=== PATIENT | male | born 1975 | race Caucasian/White ===

== ENCOUNTER 2022-09-10 11:07 | Outpatient (REF) | payer MEDICAID, SELFPAY ==
--- NOTE | ~2022-09-10 | XR_ITS ---
EXAMINATION: XR CHEST CLINICAL INFORMATION: Preop COMPARISON: None TECHNIQUE: 2 views of the chest were obtained. FINDINGS: No significant abnormality is noted involving the heart, lungs, mediastinum, bony thorax or soft tissues. XR/XR chest 2V IMPRESSION: Unremarkable examination.
[2022-09-10 11:29] LABS: MANUAL DIFF FLAG NO
[2022-09-10 12:02] LABS: Basophils Absolute Auto 0.1 X10*3/uL (0.0-0.2); Basophils Percent Auto 0.5 % (0-2); Eosinophils Absolute Auto 0.1 X10*3/uL (0.0-0.4); Eosinophils Percent Auto 1.2 % (0-4); Hematocrit 47.1 % (42.0-52.0); Hemoglobin 15.7 g/dl (14.0-18.0); Imm Gran Abs Auto 0.04 X10*3/uL (0.00-0.03); Imm Gran Pct Auto 0.3 % (0.0-0.4); Lymphocytes Percent Auto 25.7 % (20-40); Mean Corpuscular HGB Conc 33.3 g/dl (31.0-36.0); Mean Corpuscular Hemoglobin 28.3 pg (27.0-33.0); Mean Corpuscular Volume 84.9 fL (80.0-98.0); Mean Platelet Volume 8.9 fL (9.4-12.4); Monocytes Absolute Auto 0.6 X10*3/uL (0.1-1.2); Monocytes Percent Auto 5.4 % (2-11); Neutrophils Absolute Auto 7.7 x10*3/uL (2.0-8.3); Neutrophils Percent Auto 66.9 % (45-73); Platelet Count 270 X10*3/uL (160-400); Red Blood Count 5.55 X10*6/uL (4.60-5.80); Red Cell Distribution Width 13.3 % (11.0-16.0); White Blood Count 11.6 X10*3/uL (4.8-10.8)
[2022-09-10 12:12] LABS: Appearance Urine Clear; Color Urine Yellow; Glucose Urine UA Negative (Negative); Leukocyte Esterase Urine Small (1+) (Negative); Nitrite Urine Negative (Negative); PH 6.5 (5.0-9.0); Specific Gravity - Urine 1.025 (1.005-1.025); UMIC TRIGGER UA YES; Urine Blood Negative (Negative); Urine Ketones Negative (Negative); Urine Protein Negative (Neg-Trace)
[2022-09-10 12:28] LABS: Bacteria Urine None Seen (None Seen); Hyaline Casts Urine 0-2 /LPF (0-2); RBC Urine 0-2 /HPF (0-2); Squamous Epithelial Cell Urine 0-2 /HPF (0-2); WBC Urine 0-5 /HPF (0-5)
[2022-09-10 13:12] LABS: Alanine Aminotransferase 24 U/L (0-40); Albumin Level 4.9 g/dL (3.5-5.0); Alkaline Phosphatase 60 U/L (39-117); Anion Gap 16 (12-20); Aspartate Amino Transferase 18 U/L (5-37); Bilirubin Total 0.4 mg/dL (0.0-1.0); Blood Urea Nitrogen 14 mg/dL (9-16); Carbon Dioxide 24 mmol/L (22-29); Chloride 100 mmol/L (96-108); Cholesterol 308 mg/dL; Estimated Glomerular Filt Rate > 60; Glucose Fasting 99 mg/dL (60-99); HDL Cholesterol 38 mg/dL; LDL Cholesterol Calculated 201 mg/dl; Potassium 4.9 mmol/L (3.3-5.1); Sodium 135 mmol/L (135-145); Total Protein 7.7 g/dL (6.5-8.0); Triglycerides 349 mg/dL
[2022-09-10 15:10] LABS: Prostate Specific Antigen Scr 2.23 ng/mL (<0.05-4.0)
== END 2022-09-10 11:08 | disposition home or self-care (01) ==
LOC: HO.LAB 11:07
PROVIDERS: PCP Internal Medicine; Visit Provider Internal Medicine
DX: Z01.818 Encounter for other preprocedural examination (principal); Z12.5 Encounter for screening for malignant neoplasm of prostate; Z72.0 Tobacco use
CPT/HCPCS: 36415; 71046; 80053; 80061; 81001; 84153; 85025

== ENCOUNTER 2022-11-04 11:51 | Day surgery (SDC) | payer MEDICAID, SELFPAY ==
[2022-11-04] VITALS (7 sets, daily range): BP systolic 107–131; BP diastolic 71–83; PULSE 81–101; RESP 15–16; TEMP 36.6–36.9; O2SAT 93–98; BMI 28.7
--- NOTE | 2022-11-04 13:45 | P.CONAN_ITS ---
HPI - Anesthesia Eval Consult details Narrative: 47 yo male patient for screening colonoscopy. Pre-op kidney donor PMFSH Active Problems Active Problems: Smoker- 1ppd Past Medical History Medical History (Updated 11/01/22 @ 07:28 by Janny Cintron RN) Anxiety Depression Elevated cholesterol Family History Family history of problems with anesthesia: No Surgical History History of Problems with Anesthesia: No Social History Social History Patient Tobacco Use Status: Current everyday Tobacco user Are you DNR?: No Advance Directives: No Advance Directives Information Provided: Yes Nutrition Risks: No Nutritional Risk Meds Allergies Allergy/AdvReac Type Severity Reaction Status Date / Time No Known Allergies Allergy Unverified 06/29/20 17:33 Active Medications: Current Medications Sodium Biphosphate/Sodium Phosphate (Sodium Phosphate,[place]-Dibasic 133 Ml Enema) 133 ml WA ONCE PRN PRN Reason: Poor Colonoscopy Prep Results Home Medications Medication Instructions Recorded Confirmed Last Taken Type atorvastatin 20 mg tablet 1 tab PO DAILY 11/01/22 11/01/22 Unknown History sertraline 100 mg tablet 2 tab PO DAILY 11/01/22 11/01/22 Unknown History Exam Exam Date and Time: November 04, 2022 1345 Height,Weight and Vital Signs: Height 5 ft 10 in Weight 90.718 kg Last Vital Signs Temp 97.9 F 11/04/22 12:15 Pulse 101 H 11/04/22 12:15 Resp 15 11/04/22 12:15 BP 131/83 11/04/22 12:15 Pulse Ox 95 11/04/22 12:15 O2 Del Method 11/04/22 12:15 Airway Mallampati Class: II (Bearded) TM Dist: >3cm Neck ROM: Full Loose/Missing/Broken Teeth: No (Denies broken, loose, missing teeth) Heart: RRR Lungs: CTAB Assessment and Plan Assessment Anesthesia Assessment: Anesthesia Plan Discussed and Chart Reviewed Final Anesthetic Review Family History of Problems with Anesthesia: No History of Problems with Anesthesia: No NPO: Yes ASA Class: II Final Preanesthetic Review: No Changes in Pt Med Stat, Meds/Allgs Chart Reviewed, Consent Obtained/Reviewed and Anes Risks/Benef Reviewed Patient Risk: Intermediate Procedure Risk: Low Assessment/Block/Sedation in SS: Assess/Block/Sedation-SS Anesthetic Plan Anesthetic Plan: MAC: Disposition: Standard PACU
--- NOTE | 2022-11-04 15:30 | PM.OP ---
Brief Operative Note Date of Service: 11/04/22 Pre-op diagnosis: Screening Post-op diagnosis: other (Colon polyp) Procedure: Colonoscopy to the cecum and TI with hot snare polypectomy at 40cm with placement of 5 Resolution clips and the site was marked with submucosal ink. Surgeon: Cortes Herman Anesthesia: MAC Was an Saddle And Harness Maker used for this Procedure?: No Estimated blood loss (mL): 0 Pathology: other (A. Polyp at 40cm) Condition: stable Disposition: PACU
--- NOTE | 2022-11-05 01:24 | OP_ITS ---
SURGEON: Cortes Herman MD INDICATIONS: The patient presents for evaluation of colon cancer screening. Full consent has been obtained from him for this, including risks of bleeding and perforation. PREOPERATIVE DIAGNOSIS: Colon cancer screening. POSTOPERATIVE DIAGNOSIS: PROCEDURE PERFORMED: Colonoscopy to the cecum and terminal ileum with hot snare polypectomy x 1, placement of 5 Resolution clips on the polypectomy site, and marking with submucosal ink proximal and distal to the polypectomy site. ESTIMATED BLOOD LOSS: COMPLICATIONS: ANESTHESIA: Medication used, monitored anesthesia care. ASSISTANTS: SPECIMENS: POSTOPERATIVE DIAGNOSES: Colon cancer screening, colon polyp, small internal hemorrhoids. DESCRIPTION OF PROCEDURE: The patient was placed in the left lateral decubitus position. The digital rectal exam revealed no abnormalities. The [employer] video pediatric colonoscope was entered into the rectum and advanced easily to the cecum. Once in the cecum, I did identify normal-appearing cecal pouch with appendiceal orifice and a normal-appearing ileocecal valve. The terminal ileum was cannulated and appeared normal. The scope was withdrawn back in the colon. The entire cecum and ileocecal valve appeared normal. The scope was then slowly withdrawn assessing all mucosal surfaces carefully. Preparation was excellent. At 40 cm was a large, approximately 2 cm grossly adenomatous polyp with a somewhat ulcerated and friable head. There was a long thick stalk as well. I did place 2 Resolution clips at the base of the stalk prior to any polypectomy. However, at that point, the patient had a lot of coughing and oral secretions which had to be cleared and managed by the anesthesiologist. This required me to bring the scope out of the patient such that the anesthesiologist could stabilize the patient from a respiratory standpoint. Once that was accomplished, the scope was readvanced back into the patient and to the site of the large polyp. I placed 1 more clip toward the base of the stalk with good deployment. At that point, all 3 clips had deployed well. I then used a hot snare to remove the polyp at the level of the stalk just above the clips. There was no bleeding. The specimen was retrieved with a retrieval net and taken out of the patient. The scope was readvanced back into the patient to the polypectomy site which appeared to be free of any residual polyp and without bleeding. I used a sclerotherapy needle to inject submucosal ink just proximal and distal to the polypectomy site with good markings noted. Although there was no bleeding, I did place 2 more clips on the polypectomy site with good deployment and good hemostasis noted. The area was observed and irrigated without any bleeding noted. I did not visualize any other polyps, colitis, nor angiodysplasias. In the rectum, the scope was retroflexed visualizing internal hemorrhoids, but no other pathology. The rectal mucosa appeared normal. The scope was straightened and withdrawn from the patient. He tolerated the procedure well and was returned to the recovery area in stable condition. IMPRESSION: 1. Large colon polyp, status post hot snare polypectomy, placement of 5 Resolution clips, and marking with submucosal ink. 2. Internal hemorrhoids. PLAN: The results of the pathology will be checked. If there is no evidence of invasive carcinoma, then we could repeat the colonoscopy in one year. Obviously if there is invasive carcinoma, then he may need surgical referral. He was advised not to use any aspirin nor NSAIDS for two weeks. This has been discussed with his family. MD JEANNETTE Nogueira/DANIAL / [id number] MTDD
== END 2022-11-04 16:15 | disposition home or self-care (01) ==
PROVIDERS: PCP Internal Medicine; Visit Provider Internal Medicine
PROC: 0DJD8ZZ Inspection of Lower Intestinal Tract, Via Natural or Artificial Opening Endoscopic (ICD-10-PCS; CPT 45378; principal; 2022-11-04 12:50)
DX: Z12.11 Encounter for screening for malignant neoplasm of colon (principal); D12.5 Benign neoplasm of sigmoid colon; K64.8 Other hemorrhoids; R05.8 Other specified cough; K11.7 Disturbances of salivary secretion; E78.5 Hyperlipidemia, unspecified; F41.8 Other specified anxiety disorders; Z79.899 Other long term (current) drug therapy; F17.210 Nicotine dependence, cigarettes, uncomplicated
CPT/HCPCS: 45385; 45381; 88305

== ENCOUNTER 2024-07-14 15:46 | Outpatient (REF) | payer MEDICAID, SELFPAY ==
[2024-07-14 15:56] LABS: MANUAL DIFF FLAG NO
[2024-07-14 16:48] LABS: Basophils Absolute Auto 0.1 X10*3/uL (0.0-0.2); Basophils Percent Auto 0.5 % (0-2); Eosinophils Absolute Auto 0.2 X10*3/uL (0.0-0.4); Eosinophils Percent Auto 1.5 % (0-4); Hematocrit 48.1 % (42.0-52.0); Hemoglobin 16.3 g/dl (14.0-18.0); Imm Gran Abs Auto 0.04 X10*3/uL (0.00-0.03); Imm Gran Pct Auto 0.3 % (0.0-0.4); Lymphocytes Absolute Auto 3.4 X10*3/uL (1.2-4.9); Lymphocytes Percent Auto 29.6 % (20-40); Mean Corpuscular HGB Conc 33.9 g/dl (31.0-36.0); Mean Corpuscular Hemoglobin 28.7 pg (27.0-33.0); Mean Corpuscular Volume 84.7 fL (80.0-98.0); Mean Platelet Volume 9.1 fL (9.4-12.4); Monocytes Absolute Auto 0.7 X10*3/uL (0.1-1.2); Monocytes Percent Auto 5.6 % (2-11); Neutrophils Absolute Auto 7.2 x10*3/uL (2.0-8.3); Neutrophils Percent Auto 62.5 % (45-73); Platelet Count 256 X10*3/uL (160-400); Red Blood Count 5.68 X10*6/uL (4.60-5.80); Red Cell Distribution Width 12.8 % (11.0-16.0); White Blood Count 11.5 X10*3/uL (4.8-10.8)
[2024-07-14 17:58] LABS: Alanine Aminotransferase 25 U/L (0-40); Albumin Level 4.7 g/dL (3.5-5.0); Alkaline Phosphatase 67 U/L (39-117); Anion Gap 13 (12-20); Aspartate Amino Transferase 18 U/L (5-37); Bilirubin Total 0.5 mg/dL (0.0-1.0); Blood Urea Nitrogen 12 mg/dL (9-16); Calcium 9.8 mg/dL (8.4-10.2); Carbon Dioxide 25 mmol/L (22-29); Chloride 106 mmol/L (96-108); Cholesterol 196 mg/dL (<200); Estimated Glomerular Filt Rate > 60; Glucose Fasting 98 mg/dL (60-99); HDL Cholesterol 33 mg/dL (>40); LDL Cholesterol Calculated 95 mg/dL (<100); Potassium 4.5 mmol/L (3.3-5.1); Sodium 139 mmol/L (135-145); Total Protein 7.6 g/dL (6.5-8.0); Triglycerides 340 mg/dL (<150)
== END 2024-07-14 15:47 | disposition home or self-care (01) ==
LOC: HO.LAB 15:46
PROVIDERS: PCP Internal Medicine; Visit Provider Internal Medicine
DX: K21.9 Gastro-esophageal reflux disease without esophagitis (principal); E78.00 Pure hypercholesterolemia, unspecified; F17.200 Nicotine dependence, unspecified, uncomplicated
CPT/HCPCS: 36415; 80053; 80061; 85025

== ENCOUNTER 2024-11-12 13:53 | Outpatient (REF) | payer MEDICAID, SELFPAY ==
[2024-11-12 15:15] LABS: Cholesterol 203 mg/dL (<200); HDL Cholesterol 38 mg/dL (>40); LDL Cholesterol Calculated 103 mg/dL (<100); Triglycerides 313 mg/dL (<150)
== END 2024-11-12 13:54 | disposition home or self-care (01) ==
LOC: HO.LAB 13:53
PROVIDERS: PCP Internal Medicine; Visit Provider Internal Medicine
DX: E78.00 Pure hypercholesterolemia, unspecified (principal)
CPT/HCPCS: 36415; 80061

== ENCOUNTER 2025-04-13 15:52 | Outpatient (AMB) | payer MEDICAID, SELFPAY ==
--- NOTE | 2025-04-13 15:49 | A.OFFPC_ITS ---
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 Depression/anxiety-uncontrolled. PHQ-9 score 16 and divine 7 score 5. Does report fleeting passive suicidality but no active thoughts or plan. Reports he generally feels down and does not feel he is treated well by his peers. He does feel safe however. Lives at home with his mother who was a good support. He does try to manage his symptoms with distraction. Follows with Dr. Acosta in Psychiatry but is no longer following with a therapist, previously followed at service and at. He is compliant with sertraline. He does struggle with sleep as well but only occasionally uses hydroxyzine and melatonin. Hypercholesterolemia-taking atorvastatin Cigarette smoking-current 1 pack per day cigarette smoker Concerns: none Health maintenance: Overdue for colonoscopy-last colonoscopy 2022 with 1 year follow-up advised due to large colon polyp. Dr. Christie Due for screening PSA ROS: General: No fevers, malaise, unintentional weight loss Cardiovascular: No chest pain, palpitations, or leg edema Respiratory: No shortness of breath, wheezing, cough MSK: No myalgia, back pain Neuro: No headaches, weakness, paresthesias Psych: see hpi Skin: No rashes or lesions EXAM: Constitutional - Awake and Alert, No apparent distress Eyes - PERRL Cardiovascular - S1S2, RRR, No edema Respiratory - Normal lung expansion, Normal respiratory effort, No respiratory distress, CTA bilaterally Extremities - no calf tenderness bilaterally, no swelling Skin - Warm/Dry Neurological - Alert & oriented x3 Psychological - depressed mood, no si PFSH Medical History (Updated 04/13/25 @ 16:19 by FABI Edgar) Cigarette smoker Anxiety Depression Elevated cholesterol Surgical History (Updated 04/12/25 @ 15:45 by Shira Caicedo) History of colonoscopy (~11/05/22) Social History Patient Tobacco Use Status: Current everyday Tobacco user Questionnaire PHQ-9 Over the last 2 weeks, how often have you been bothered by any of the following problems? 1. Little interest or pleasure in doing things: nearly every day 2. Feeling down, depressed, or hopeless: more than half the days 3. Trouble falling or staying asleep, or sleeping too much: more than half the days 4. Feeling tired or having little energy: nearly every day 5. Poor appetite or overeating: several days 6. Feeling bad about yourself - or that you are a failure or have let yourself or your family down: nearly every day 7. Trouble concentrating on things, such as reading the newspaper or watching television: more than half the days 8. Moving or speaking so slowly that other people could have noticed. Or the opposite - being so fidgety or restless that you have been moving around a lot more than usual: not at all 9. Thoughts that you would be better off or of hurting yourself in some way: several days Total score: 17 Source: Developed by Drs. Cortes James, Mini Belcher, Meek Reynolds and colleagues, with an educational louis from [employer]. Thrive Questionnaire Date Thrive assessed: 04/13/25 I am a: Patient What is your living situation today?: I have a steady place to live Within the past 12 months, did the food you bought not last and you didn't have the money to get more?: Never true Within the past 12 months, did you worry whether your food would run out before you got money to buy more?: Never true Do you have trouble paying for medicines?: No Do you have trouble getting transportation to medical appointments?: No Do you have trouble paying your heating and electricity bill?: No Do you have trouble taking care of your child, family member or friend?: No Do you have trouble with day-to-day activities such as bathing, preparing meals, shopping, managing finances, etc.?: No Are you currently unemployed and looking for a job?: No Are you interested in more education?: No THRIVE Score: 0 DIVINE-7 AMB Questionnaire DIVINE-7 Date DIVINE - 7 assessed: 04/13/25 Feeling nervous, anxious, or on edge: 1 = Several days Not being able to stop or control worryin = More than half the days Worrying too much about different things: 2 = More than half the days Trouble relaxin = More than half the days Being so restless that it is hard to sit still: 0 = Not at all Becoming easily annoyed or irritable: 0 = Not at all Feeling afraid as if something awful might happen: 1 = Several days Total DIVINE-7 score (0-4 normal; 5-9 mild; 10-14 moderate; 15-21 severe): 8 Source: Developed by Drs. Cortes James, Mini Belcher, Meek Reynolds and colleagues, with an educational louis from [employer]. Physical exam (Primary Care) Vital Signs: Last Vital Signs Pulse 96 04/13/25 15:56 Resp 16 04/13/25 15:56 BP 102/80 04/13/25 15:56 Pulse Ox 98 04/13/25 15:56 Oxygen Delivery Method Room Air 04/13/25 15:56 BMI result Body Mass Index 28.4 Tobacco/Smoking Status: Tobacco use Status Patient Tobacco Use Status Current everyday Tobacco 04/13/25 15:52 PHQ-9: PHQ-9 Score PHQ-9: Total score 17 04/13/25 16:30 Thrive Assessment: Date of Thrive Assessment Date Thrive assessed 04/13/25 04/13/25 16:30 Coding Level of Care Code New Pt Level 4 (91838) Complex EM visit Add On G2211 Diagnoses Depression F32.A Anxiety F41.9 Elevated cholesterol E78.00 Colon polyp K63.5 Cigarette smoker F17.210 Assessment & Plan Assessment & Plan (1) Depression: Code(s): F32.A - Depression, unspecified Category: Medical Plan: Uncontrolled with PHQ-9 16. Denies active SI. Continue on sertraline and use positive coping mechanisms. Follow-up with Psychiatry. Recommend reestablishing care with therapist. Advised to call 911 should active suicidal thoughts/plan occur (2) Anxiety: Code(s): F41.9 - Anxiety disorder, unspecified Category: Medical Plan: Uncontrolled with divine 7 score 5 related to above. Continue hydroxyzine as needed. Follow up with Psychiatry and recommend reestablishing care with therapist (3) Elevated cholesterol: Code(s): E78.00 - Pure hypercholesterolemia, unspecified Category: Medical Plan: Lipid panel ordered. Continue atorvastatin. Recommend diet low in saturated fat and high with processed foods (4) Colon polyp: Code(s): K63.5 - Polyp of colon Category: Medical Plan: Referred for colonoscopy, overdue (5) Cigarette smoker: Code(s): F17.210 - Nicotine dependence, cigarettes, uncomplicated Category: Medical Plan: Smoking cessation advised Plan Follow up in 6 months, sooner if needed. Lbas to be completed Orders: Orders Basic Metabolic Panel Today E78.00 - Pure hypercholesterolemia, unspecified, F32.A - Depression, unspecified, F41.9 - Anxiety disorder, unspecified Liver Panel Today E78.00 - Pure hypercholesterolemia, unspecified, F32.A - Depression, unspecified, F41.9 - Anxiety disorder, unspecified Prostate Specific Antigen Today E78.00 - Pure hypercholesterolemia, unspecified, F32.A - Depression, unspecified, F41.9 - Anxiety disorder, unspecified Lipid Panel Today E78.00 - Pure hypercholesterolemia, unspecified, F32.A - Depression, unspecified, F41.9 - Anxiety disorder, unspecified Referrals Gastroenterology Referral K63.5 - Polyp of colon, Z12.11 - Encounter for screening for malignant neoplasm of colon
--- OUTSIDE RECORDS SUMMARY | 2025-04-13 15:55 | XMS_ITS | Patient Health Record ---
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 Name Role Phone Benigno Delcid MD Primary Care Provider Cortes Huang Unavailable [phone] Allergies No Known Allergies Reason For Referral No Information Medications Medication SIG (Take, Route, Frequency, Duration) Notes Start Date End Date Status Atorvastatin Calcium 20 MG TAKE 1 TABLET BY MOUTH EVERY DAY Oral for 30 Active Sertraline HCl 100 MG TAKE 2 TABLETS BY MOUTH EVERY DAY Oral for 90 Active Immunizations Vaccine Route Administration Date Status Comme nts Influenza Unknown 10/10/2022 Refused Social History Tobacco Use: Social History Observation Description Date Details (start date - stop date) Current Smoker NA - NA Tobacco Use/Smoking Question Answer Notes Patient is a current smoker How often do you smoke cigarettes? every day How many cigarettes a day do you smoke? 11-20 Are you interested in quitting? Thinking about q uitting Alcohol Screen Question Answer Notes Did you have a drink containing alcohol in the p ast year? No Points 0 Interpretation Negative Section Notes: Smoker 1 ppd; no alcohol for 6-7 years, but heavy drinker in the past Problems Problem Type SNOMED Code ICD Code Onset Dates Problem Status W/U Status Risk Notes Problem 175448397 Colon cancer screening (Z12.11) Active confirmed Problem [id number] Preprocedural examination (Z01.818) Active confirmed Plan Of Treatment Future Test Test Name Order Date COLONOSCOPY 10/10/2022 Insurance Providers Payer Name Payer Address Payer Phone Subscriber Number Group Number Insured Name Patient Relationship to Insured Coverage Start Date Coverage End Date MEDICAID OF [facility] [address] [place] [phone] [id number] RUSSEL SCHWARTZ Self - patient is the insured Medical (General) History Medical History History ICD Code Denies [place],DM,CVA,Lung disease,renal dise ase Hyperlipidemia Depression/Anxiety Surgical History Surgery Date(Month/Year)
[2025-04-13 15:56] VITALS: BP 102/80; PULSE 96; RESP 16; O2SAT 98; BMI 28.4
== END 2025-04-13 16:28 | disposition home or self-care (01) ==
LOC: HO.HMCHD 15:53
PROVIDERS: PCP Internal Medicine; Visit Provider Physician Assistant
DX: F32.A Depression, unspecified (principal); F41.9 Anxiety disorder, unspecified; E78.00 Pure hypercholesterolemia, unspecified; K63.5 Polyp of colon; F17.210 Nicotine dependence, cigarettes, uncomplicated

== ENCOUNTER → 2025-04-13 15:52 | Outpatient (BNVA) | payer MEDICAID, SELFPAY | PROVIDERS: PCP Internal Medicine; Visit Provider Physician Assistant | DX: F32.A Depression, unspecified (principal); F41.9 Anxiety disorder, unspecified; E78.00 Pure hypercholesterolemia, unspecified; K63.5 Polyp of colon; F17.210 Nicotine dependence, cigarettes, uncomplicated; Z79.899 Other long term (current) drug therapy; Z13.30 Encounter for screening examination for mental health and behavioral disorders, unspecified; Z13.31 Encounter for screening for depression | CPT/HCPCS: 99212 ==